=== PATIENT | female | born 2000 | race Asian ===

== ENCOUNTER 2021-06-04 20:30 | Inpatient (IN) | payer BC ==
[~2021-06-04] VITALS: Ht 157.5 cm; Wt 44.9 kg
[2021-06-04 22:17] LABS: COVID AG,FIA SOURCE NASOPHARYNGEAL
[2021-06-04 23:41] LABS: AMPHET/METH SCREEN,URINE NEGATIVE (NEGATIVE); BARBITURATE SCREEN, URINE NEGATIVE (NEGATIVE); BENZODIAZEPINES SCREEN,URINE NEGATIVE (NEGATIVE); CANNABINOID SCREEN,URINE POSITIVE (NEGATIVE); COCAINE SCREEN,URINE NEGATIVE (NEGATIVE); METHADONE SCREEN, URINE NEGATIVE (NEGATIVE); OPIATE SCREEN,URINE NEGATIVE (NEGATIVE)
[2021-06-04 23:45] LABS: PHENCYCLIDINE SCREEN,URINE NEGATIVE (NEGATIVE)
[2021-06-05] MEDS ORDERED: ZOLPIDEM TARTRATE 10 MG TABLET PO PRN (00:30)
[2021-06-05] MEDS ORDERED: LORazepam 2 MG TABLET PO PRN (00:30)
[2021-06-05] MEDS ORDERED: OLANZapine 5 MG RAPDIS TABLET PO PRN (00:30)
[2021-06-05 00:40] LABS: APPEARANCE,URINE CLEAR (CLEAR); BILIRUBIN,URINE NEGATIVE (NEGATIVE); GLUCOSE, URINE (UA) NEGATIVE (NEGATIVE); KETONES,URINE 15 mg/dL (NEGATIVE); LEUKOCYTE ESTERASE ,URINE NEGATIVE (NEGATIVE); NITRATE,URINE NEGATIVE (NEGATIVE); OCCULT BLOOD,URINE TRACE (NEGATIVE); PH,URINE 6.5 (5.0-8.0); PROTEIN,URINE NEGATIVE (NEGATIVE); UROBILINOGEN,URINE 0.2 mg/dL (<=1.0)
[2021-06-05 00:49] LABS: BACTERIA,URINE None Seen /HPF (None Seen); RBC,URINE 0-2 /HPF (0-2); WBC,URINE 0-2 /HPF (0-5)
[2021-06-05 02:03] VITALS: BP 95/62
[2021-06-05] MEDS ORDERED: INFLUENZA VIRUS VACCINE QVS 2021-22 (6MO+)/PF 60 MCG/0.5 ML SYRINGE IM. ONE (02:45)
[2021-06-05 10:41] VITALS: BP 96/58
[2021-06-05 13:17] VITALS: BP 98/68
[2021-06-05] MEDS ORDERED: TUBERCULIN, PURIFIED PROTEIN DERIVATIVE 5 TU/0.1 ML SYRINGE ID ONE (15:45)
[2021-06-05] MEDS ORDERED: LOPERAMIDE HCL 2 MG CAPSULE PO PRN (15:45)
[2021-06-05] MEDS ORDERED: GuaiFENesin/D-METHORPHAN [SUGAR-FREE] 200-20MG/10 ML SYRUP UDCUP PO PRN (15:45)
[2021-06-05] MEDS ORDERED: PROMETHAZINE HCL 25 MG TABLET PO PRN (15:45)
[2021-06-05] MEDS ORDERED: MAGNESIUM HYDROXIDE SUSPENSION 30 ML UDCUP PO PRN (15:45)
[2021-06-05] MEDS ORDERED: HydrOXYzine PAMOATE 50 MG CAPSULE PO PRN (15:45)
[2021-06-05] MEDS ORDERED: ACETAMINOPHEN 325 MG TABLET PO PRN (15:45)
[2021-06-05] MEDS ORDERED: MAG HYDROX/AL HYDROX/SIMETH ES 30 ML SUSPENSION UDCUP PO PRN (15:45)
[2021-06-05 16:00] VITALS: BP 102/51
[2021-06-05] MEDS: THIAMINE 100 MG TABLET PO SCH (16:36)
[2021-06-05] MEDS: MELATONIN 5 MG TABLET PO SCH (21:30)
[2021-06-06] MEDS: NALTREXONE HCL 50 MG TABLET PO SCH (08:33)
[2021-06-06] MEDS: OMEGA-3/DHA/EPA/FISH OIL 1,000 MG CAPSULE PO SCH (08:33)
[2021-06-06] MEDS: FLUoxetine HCL 20 MG CAPSULE PO SCH (08:33)
[2021-06-06] MEDS: FOLIC ACID 1 MG TABLET PO SCH (08:33)
[2021-06-06] MEDS: MULTIVITAMINS WITH MINERALS, THERAPEUTIC TABLET PO SCH (08:33)
[2021-06-06] MEDS: THIAMINE 100 MG TABLET PO SCH ×2 (08:33→17:00)
[2021-06-06 08:47] VITALS: BP 102/61
[2021-06-06 09:45] LABS: CHOL/HDL RATIO 2.7 (3.9-5.7); FREE T4 (FREE THYROXINE) 1.1 ng/dL (0.76-1.46); THYROID STIMULATING HORMONE 1.24 uIU/mL (0.36-3.74)
[2021-06-06 16:30] VITALS: BP 94/57
[2021-06-06] MEDS ORDERED: NALT50TA PO (20:24)
[2021-06-06] MEDS ORDERED: OMEG-135 PO (20:24)
[2021-06-06] MEDS ORDERED: MELA5TAB40 PO (20:24)
[2021-06-06] MEDS ORDERED: PROZ20 PO (20:24)
[2021-06-06] MEDS: MELATONIN 5 MG TABLET PO SCH (20:56)
[2021-06-07 08:20] VITALS: BP 97/63
[2021-06-07] MEDS: FOLIC ACID 1 MG TABLET PO SCH (09:05)
[2021-06-07] MEDS: MULTIVITAMINS WITH MINERALS, THERAPEUTIC TABLET PO SCH (09:05)
[2021-06-07] MEDS: FLUoxetine HCL 20 MG CAPSULE PO SCH (09:05)
[2021-06-07] MEDS: THIAMINE 100 MG TABLET PO SCH (09:05)
[2021-06-07] MEDS: NALTREXONE HCL 50 MG TABLET PO SCH (09:05)
[2021-06-07] MEDS: OMEGA-3/DHA/EPA/FISH OIL 1,000 MG CAPSULE PO SCH (09:05)
== END 2021-06-07 10:18 | disposition home or self-care (01) | DRG 885 ==
LOC: EMS 20:32 → 3EI 06-05 01:00
PROVIDERS: ADMIT Psychiatry & Neurology Psychiatry; ATTEND Psychiatry & Neurology Psychiatry
DX: F32.2 Major depressive disorder, single episode, severe without psychotic features (principal); R45.851 Suicidal ideations; Z20.822 Contact with and (suspected) exposure to COVID-19; F12.90 Cannabis use, unspecified, uncomplicated; Z63.9 Problem related to primary support group, unspecified
CPT/HCPCS: 80061; 81001; 81003; 83036; 84439; 84443; 84703; 99285; Q9967